=== PATIENT | male | born 1990 | race Hispanic/Latino ===

== ENCOUNTER 2019-04-04 11:43 | Emergency (ER) | payer OTHER, SELFPAY ==
--- NOTE | 2019-04-04 11:50 | ED.GENADULT ---
HPI - General Adult General Chief complaint: Dental/Oral Stated complaint: Tooth Ache Time Seen by Provider: 04/04/19 12:04 Source: patient Mode of arrival: ambulatory Limitations: no limitations History of Present Illness HPI narrative: 28-year-old male patient presents to the [facility] with complaints of front dental pain. Patient states he does have an implant to this area and states that he has been having problems with it since December and it appears to be coming loose and coming out. Patient states he does have a follow-up appointment with a dentist on April 06 but he is concerned that he could be starting to have an infection to the area. Patient states there was a pustule over the implant about a month ago that popped. Patient states he has a little bit of sensitivity and redness to this area. Patient is HIV positive and states that he just wants to be on top of the infection before it gets worse. Related Data Home Medications Medication Instructions Recorded Confirmed Brycektarlen 04/04/19 Allergies Allergy/AdvReac Type Severity Reaction Status Date / Time No Known Drug Allergies Allergy Unknown Verified 02/07/18 09:59 Review of Systems Review of Systems: Narrative: CONSTITUTIONAL: Denies fever, chills, or sweats. EYES: Denies visual changes, redness, or discharge. ENT: Denies rhinorrhea, congestion, sore throat, or otalgia. Positive front dental pain x1 month CARDIOVASCULAR: Denies chest pain, palpitations, or edema. RESPIRATORY: Denies cough or dyspnea. GASTROINTESTINAL: Denies abdominal pain, nausea, vomiting, or diarrhea. GENITOURINARY: Denies dysuria or hematuria. SKIN: Denies rash or itching. MUSCULOSKELETAL: Denies back pain, joint pain, or myalgia. NEUROLOGIC: Denies headache, numbness, or weakness. PSYCHIATRIC: Denies anxiety or depression. PMFSH Comments At the time of my signature I agree with nursing past medical history, surgical, social, and family history. There is no relevant family history pertinent to the presenting complaint. Exam Narrative: Exam Narrative: GENERAL: Well-appearing, well-nourished, and in no acute distress. HEAD: Normocephalic, atraumatic. EYES: PERRLA and EOMI. ENT: Nares clear, no rhinorrhea or epistaxis. Mucous membranes moist. Patient front right tooth does appear to be coming loose. The gum area above this front to is red and sensitive to touch. There is no obvious abscess that I can see there. NECK: Supple. No lymphadenopathy CHEST: Clear to auscultation. No respiratory distress. HEART: Regular rate and rhythm. No murmur heard. Normal peripheral pulses. ABDOMEN: Soft, nontender, nondistended, normal active bowel sounds. EXTREMITIES: Normal range of motion. No edema. SKIN: Warm, dry, no rash. NEURO: No focal deficits. Alert and oriented x3. Course Vital Signs Vital signs: Vital Signs Temperature 36.9 C 04/04/19 11:56 Pulse Rate 77 04/04/19 11:56 Respiratory Rate 16 04/04/19 11:56 Blood Pressure 119/70 04/04/19 11:56 Pulse Oximetry 100 04/04/19 11:56 Temperature 36.9 C 04/04/19 11:56 Pulse Rate 77 04/04/19 11:56 Respiratory Rate 16 04/04/19 11:56 Blood Pressure 119/70 04/04/19 11:56 Pulse Oximetry 100 04/04/19 11:56 Vital signs reviewed. Medical Decision Making Differential Diagnosis Differential Diagnosis: Differential diagnosis: Dental caries, periodontal disease, avulsed tooth, tooth infections, mandibular infection, Saji's angiana, upper tooth infection, dry socket, gingivitis, acute necrotizing ulcerative gingivitis, sialolithiasis. Discussed with patient that we will go ahead and place him on antibiotics since he is immune compromised and if he does get an infection it could worsen his condition. Discussed with patient I am to put him on 2 antibiotics today one is for better bone penetration especially since the implant is starting to come out and I want him to continue to follow-up with his dentist as sche
[2019-04-04 11:56] VITALS: BP 119/70; PULSE 77; RESP 16; TEMP 36.9; O2SAT 100
== END 2019-04-04 12:20 | disposition home or self-care (01) ==
PROVIDERS: Emergency Provider Nurse Practitioner Family
DX: K08.89 Other specified disorders of teeth and supporting structures (principal); K04.7 Periapical abscess without sinus; Z21 Asymptomatic human immunodeficiency virus [HIV] infection status
CPT/HCPCS: 99211; G0463